=== PATIENT | male | born 1955 | race African-American/Black ===

== ENCOUNTER 2021-05-26 03:38 | Emergency (ER) | payer OTHER ==
[2021-05-26 04:05] VITALS: BP 166/94; PULSE 82; TEMP 98.2; BMI 35.9
[2021-05-26] MEDS ORDERED: DEXAMETHASONE SOD PHOSPHATE 10 MG/1 ML VIAL IVPUSH ONE (04:17)
[2021-05-26] MEDS ORDERED: FAMOTIDINE 20 MG/50 ML IVPB 20 MG/50 ML MG IVPB ONE (04:17)
== END 2021-05-26 07:00 | disposition home or self-care (01) ==
LOC: JER 03:38
PROC: 3E033GC Introduction of Other Therapeutic Substance into Peripheral Vein, Percutaneous Approach (ICD-10-PCS; principal; 2021-05-26)
DX: T78.3XXA Angioneurotic edema, initial encounter (principal)
CPT/HCPCS: 96365; 96375; 99284-25; J1100

== ENCOUNTER 2021-06-23 10:25 | Emergency (ER) | payer OTHER ==
[2021-06-23 10:35] VITALS: TEMP 98; BMI 34.4
[2021-06-23] MEDS ORDERED: SODIUM CHLORIDE 1,000 ML IV ONE (11:45)
[2021-06-23 12:53] LABS: EPI CELLS 9 /uL (0-25.1); HYALINE CASTS 1 /uL (0-3.1); PH,URINE 5.5 (5.0-8.0); URINE APPEARANCE CLOUDY; URINE BACTERIA 0 /uL (0-1359); URINE BILIRUBIN 1+ (NEGATIVE); URINE COLOR RED; URINE GLUCOSE (UA) 3+ (NEGATIVE); URINE KETONE NEGATIVE (NEGATIVE); URINE LEUK ESTERASE 1+ (NEGATIVE); URINE NITRITE NEGATIVE (NEGATIVE); URINE PROTEIN 2+ (NEGATIVE); URINE RBC 38784 /uL (0-23.9); URINE WBC 72 /uL (0-25.8)
[2021-06-23 13:44] LABS: BASO % 1.2 % (0-2.0); EOS % 2.1 % (0-4.5); HEMATOCRIT 39.5 % (35.4-49); HEMOGLOBIN 13.4 GM/dL (11.7-16.9); LYMPH % 24.6 % (8-40); MCH 27.1 pg (25.7-33.7); MCHC 33.8 g/dl (32.0-35.9); MEAN CELL VOLUME 80.2 fl (80-96); MEAN PLT VOLUME 7.9 fl (7.5-11.1); MONO % 9.8 % (3.8-10.2); NEUT % 62.3 % (42.8-82.8); PLATELET COUNT 152 10^3/uL (134-434); RBC 4.93 M/mm3 (4.00-5.60); RDW 12.8 % (11.9-15.9)
[2021-06-23 13:52] LABS: INR 1.11 (0.83-1.09)
[2021-06-23 14:04] LABS: CALCIUM 8.9 mg/dL (8.5-10.1)
[2021-06-23 14:05] LABS: ALBUMIN 3.9 g/dl (3.4-5.0); BLOOD UREA NITROGEN 13.8 mg/dL (7-18)
[2021-06-23 14:08] LABS: CREATININE 1.1 mg/dL (0.55-1.3)
[2021-06-23 14:10] LABS: BILIRUBIN,TOTAL 0.3 mg/dL (0.2-1); TOT PROT 8.3 g/dl (6.4-8.2)
[2021-06-23 19:04] VITALS: BP 149/83; PULSE 70
== END 2021-06-23 19:00 | disposition home or self-care (01) ==
LOC: JER 10:25
PROC: 3E0337Z Introduction of Electrolytic and Water Balance Substance into Peripheral Vein, Percutaneous Approach (ICD-10-PCS; principal; 2021-06-23)
DX: Q00-Q99 Congenital malformations, deformations and chromosomal abnormalities (principal); R31.0 Gross hematuria
CPT/HCPCS: 36415; 74176-TC; 80053; 81003; 85025; 85610; 87086; 99284-25